=== PATIENT | male | born 1985 | race Caucasian/White ===

== ENCOUNTER 2023-12-19 16:46 | Emergency (ER) | payer MEDICARE, OTHER, SELFPAY ==
[2023-12-19 16:53] VITALS: BP 120/76
[2023-12-19 17:20] VITALS: BMI 21.8
--- NOTE | 2023-12-19 17:20 | ED.GENMED ---
History of Present Illness
General
Chief Complaint: Crisis Evaluation
Time Seen by Provider: 12/19/23 17:20
History of Present Illness
History of Present Illness:
TIME OF INITIAL ENCOUNTER: 5:30 PM
HPI: The patient was brought here by his mother due to overall concerns of his mental health. Earlier today he was in a [facility] mom was later brought to his mother. He has not been caring for himself. He has a history of schizophrenia and had
been at a place called [facility] ([place]). He states that he last used heroin 3 days ago and wants to go on methadone and want something for anxiety. Mom is hoping that he can go back to [place] as she felt that he improved while there. The patient
into consistently and shows positive to suicidal ideation questioning.
EXAM:
GENERAL: The patient has a bizarre affect wearing a bicycle helmet and sunglasses and mask
HEENT: Moist oral mucosa
CARDIOVASCULAR: No murmurs, normal heart rate, regular rhythm, No chest wall tenderness
PULMONARY: No respiratory distress, breath sounds are clear and equal
ABDOMEN: Soft with no peritoneal signs, no tenderness
NEUROLOGIC: Excellent strength all extremities, no coordination deficits
PSYCHIATRIC: Bizarre affect, limited insight and judgment
EXTREMITIES: Some mild edema noted to both hands with erythema but no tenderness
SKIN: No rash, no lesions
NUMBER AND COMPLEXITY OF PROBLEMS ADDRESSED AT THE ENCOUNTER
� Chronic conditions affecting care: Anxiety/depression, schizophrenia, history of substance abuse
� Acute Exacerbation and/or Progression of Chronic Illness: This is an acute problem
� Differential Diagnosis includes: Substance abuse, exacerbation of schizophrenia
AMOUNT AND/OR COMPLEXITY OF DATA TO BE REVIEWED AND ANALYZED
� I performed an independent evaluation of and my interpretation is:
EKG:
CT:
X-rays:
Laboratory Studies: UDS is positive for methadone only
Other:
� Review of other/old records: The patient was seen here as a crisis patient in December 2021
� Clinical information was obtained by an independent historian: I spoke to the mother at bedside
� Prescriptions/Medications Considered but not given:
� Further testing considered but not performed:
RISK OF COMPLICATIONS AND/OR MORBIDITY OR MORTALITY OF PATIENT MANAGEMENT
� Social determinants of health affecting care: Has been homeless and has been staying at shelters and also recently was kicked out of the facility due to substance use
� Discussion with other providers: I spoke to [facility] initially as there was some concern for SI and the patient has history of schizophrenia however [facility] recommended [facility] involvement. [facility] felt it would be too tough to
place this patient into rehab given his psychiatric history. I have asked [facility] to paint a telepsych consult at 7:50 PM.
� Escalation of care including admission/observation vs risk of discharge considered:
ANY OTHER UPDATES:
9:45 PM: I spoke to [facility] again. [facility] is telling me that there is a place in [place] that could take him his rehab. Currently, he does have a telepsych evaluation that is pending
Past History
Past History
ED Past Medical History: Asthma, Psychiatric (Anxiety, depression, suicide attempt (PTSD hallucinogenic perspective disorder)) and Other (irritable bowel syndrome, Polysubstance abuse)
ED Past Surgical History: Orthopedic
Patient has exhibited threatening behavior?: No
Social History
Tobacco: Former smoker
Alcohol: None
Drug: IVDA
Personal: Single
Living: alone
Employment: Not employed
Family History
Family History: Other (non-contributory) and Adopted
Phy Exam
Physical Exam
Physical Exam:
See HPI
Course
Orders/Labs/Results
Orders:
Orders
12/19/23 17:29
Crisis Consult Urgent
Reason for Consult: mental health eval
12/19/23 22:37
Urine Drug Abuse Screen Urgent
Date Specimen was Collected: 12/20/23
Time Specimen was Collected: 04:06
12/20/23 04:11
Fentanyl, Urine Urgent
Abnormal Lab Results
12/20/23
04:11
Urine Methadone Screen Positive H
(Negative)
Vital Signs
Initial and Last Documented VS:
Initial Vital Signs
Temp Pulse Resp BP Pulse Ox
98.5 F 87 16 120/76 98
12/19/23 16:53 12/19/23 16:53 12/19/23 16:53 12/19/23 16:53 12/19/23 16:53
Last Documented Vital Signs
Temp Pulse Resp BP Pulse Ox
98.1 F 81 18 126/73 100
12/19/23 21:00 12/20/23 04:35 12/20/23 04:35 12/20/23 04:35 12/20/23 04:35
*Critical Care Note
Total Time (30-74mins, 75-104mins- exclusive of procedures): Not Applicable
ED Attending Note
-
Portions of this chart may have been created with voice recognition software.� Occasional wrong word or��sound alike� substitutions may have occurred due to the inherent limitations of voice recognition software.
Discharge Plan
Departure
Patient Disposition: Psych Facility
Date of Disposition: 12/19/23
Time of Disposition: 20:47
Discharge Problem:
Active substance abuse
Prescriptions:
No Action
buprenorphine HCl [Subutex] 8 mg Tablet, Sublingual
8 mg SUBLINGUAL DAILY
Referrals:
UNKNOWN - PT NOT,INTERVIEWE [Family Provider] -
Interventions
Interventions:
*Risk Screen - Suicide Last Done: 12/19/23 16:53
*General Assessment Last Done: 12/19/23 17:20
*Neglect/Abuse Screening Last Done: 12/19/23 16:53
ED- Fall Risk Assessment Last Done: 12/19/23 17:20
*ED COVID-19 Vaccine History Last Done: 12/19/23 17:20
*Nursing Disposition Last Done: 12/20/23 09:10
ED-Psychological Assessment Last Done: 12/19/23 17:20
Discharge Date and Time
Discharge Date/Time: 12/20/23 09:09
Print Language: WALLISIAN
[2023-12-19 21:00] VITALS: BP 118/77
[2023-12-20 04:35] VITALS: BP 126/73
[2023-12-20 04:49] LABS: Amphetamines Negative (Negative); Barbiturates Negative (Negative); Benzodiazepines Negative (Negative); Buprenorphine Negative (Negative); Cocaine Negative (Negative); Marijuana Negative (Negative); Methadone Positive (Negative); Methamphetamines Negative (Negative); Opiates Negative (Negative); Phencyclidine Negative (Negative); Tricyclic Antidepressants Negative (Negative)
[2023-12-20 05:01] LABS: Fentanyl, Urine Negative (Negative)
== END 2023-12-20 09:09 ==
LOC: EMR 16:46
PROVIDERS: Emergency Medicine; EMERGENCY PHYSICIAN Emergency Medicine
DX: F19.10 Other psychoactive substance abuse, uncomplicated (principal); F11.20 Opioid dependence, uncomplicated; F25.0 Schizoaffective disorder, bipolar type; F43.12 Post-traumatic stress disorder, chronic; Z59.00 Homelessness unspecified; Z87.891 Personal history of nicotine dependence; J45.909 Unspecified asthma, uncomplicated
CPT/HCPCS: 99285; 80306; 80307

== ENCOUNTER 2024-02-06 13:13 | Emergency (ER) | payer OTHER, SELFPAY ==
[2024-02-06 13:17] VITALS: BP 130/84
--- NOTE | 2024-02-06 14:05 | ED.GENMED ---
History of Present Illness
General
Chief Complaint: Crisis Evaluation
Time Seen by Provider: 02/06/24 13:57
History of Present Illness
History of Present Illness:
Patient is a 38-year-old man with history of anxiety, depression, schizophrenia, PTSD not currently on any medications presenting to the emergency department for evaluation by crisis. Patient states that he was going to [place] when police stopped him
and brought him here for evaluation. He denies any SI or HI. He does states that he is very anxious. He does state that he is PTSD which is why he is anxious Per chart review patient has been seen here before. Occasionally he is here for acute
psychosis otherwise he is here for anxiety and will go to [place]. He denies any medical complaints at this time. He is interested in talking to somebody about his anxiety.
Past History
Past History
ED Past Medical History: Asthma, Psychiatric (Anxiety, depression, suicide attempt (PTSD hallucinogenic perspective disorder)) and Other (irritable bowel syndrome, Polysubstance abuse)
ED Past Surgical History: Orthopedic
Patient has exhibited threatening behavior?: No
Social History
Tobacco: Former smoker
Alcohol: None
Drug: IVDA
Personal: Single
Living: alone
Employment: Not employed
Family History
Family History: Other (non-contributory) and Adopted
Phy Exam
Physical Exam
Physical Exam:
GENERAL: in no acute distress
HEENT: normocephalic, extraocular movements intact, moist oral mucosa
NECK: normal inspection
RESPIRATORY: no respiratory distress, clear to auscultation bilaterally
CARDIOVASCULAR: regular rate and rhythm
ABDOMEN/: soft, non-distended, non-tender to palpation, no rebound or guarding
EXTREMITIES: non-tender, no edema/swelling
NEUROLOGIC: awake and alert, moves all extremities
Psych: Alert and oriented x 3, normal mood and affect, speech normal not pressured, coherent thought process, not tangential, not currently suicidal or homicidal, cooperative and communicating, no active auditory or visual hallucinations, good
insight and judgement
SKIN: warm
Course
Vital Signs
Initial and Last Documented VS:
Initial Vital Signs
Temp Pulse Resp BP Pulse Ox
98.1 F 71 16 130/84 99
02/06/24 13:17 02/06/24 13:17 02/06/24 13:17 02/06/24 13:17 02/06/24 13:17
Last Documented Vital Signs
Temp Pulse Resp BP Pulse Ox
98.1 F 71 16 130/84 99
02/06/24 13:17 02/06/24 13:17 02/06/24 13:17 02/06/24 13:17 02/06/24 13:17
MDM/Problems Addressed
Differential Diagnosis Includes:
Patient is a 38-year-old male with history of anxiety, schizophrenia, PTSD presenting to the emergency department requesting crisis evaluation for his anxiety. Vitals and exam are unremarkable. My evaluation patient denies any medical complaints.
He denies any SI or HI. He is voluntary requesting help to talk to somebody about his anxiety. He is interested on starting on medication or some treatment. Given that patient is not any harm to himself or others and does not meet any criteria
for involuntary placement I did discuss with crisis who are extremely familiar with him. Will discharge patient to [facility] for further evaluation.
*Critical Care Note
Total Time (30-74mins, 75-104mins- exclusive of procedures): Not Applicable
ED Attending Note
-
Portions of this chart may have been created with voice recognition software.� Occasional wrong word or��sound alike� substitutions may have occurred due to the inherent limitations of voice recognition software.
Discharge Plan
Departure
Patient Disposition: [facility]
Date of Disposition: 02/06/24
Time of Disposition: 14:04
Discharge Problem:
Anxious mood
Instructions: Anxiety, Adult (DC)
Prescriptions:
No Action
buprenorphine HCl [Subutex] 8 mg Tablet, Sublingual
8 mg SUBLINGUAL DAILY
Interventions
Interventions:
*Risk Screen - Suicide Last Done: 02/06/24 13:19
Discharge Date and Time
Print Language: TURKMEN
== END 2024-02-06 15:19 | disposition home or self-care (01) ==
LOC: EMR 13:13
PROVIDERS: EMERGENCY PHYSICIAN Student in an Organized Health Care Education/Training Program
DX: F41.9 Anxiety disorder, unspecified (principal); F20.9 Schizophrenia, unspecified; F43.10 Post-traumatic stress disorder, unspecified; F32.A Depression, unspecified; K58.9 Irritable bowel syndrome, unspecified; J45.909 Unspecified asthma, uncomplicated; F19.11 Other psychoactive substance abuse, in remission; Z91.51 Personal history of suicidal behavior; Z87.891 Personal history of nicotine dependence
CPT/HCPCS: 99282

== ENCOUNTER 2024-02-11 15:58 | Emergency (ER) | payer OTHER, SELFPAY ==
[2024-02-11 16:03] VITALS: BP 125/82
--- NOTE | 2024-02-11 17:23 | ED.GENMED ---
History of Present Illness
General
Chief Complaint: Crisis Evaluation
Source: patient
Exam Limitations: none
Time Seen by Provider: 02/11/24 17:06
Nursing documentation reviewed up to this point in time: agreed with
History of Present Illness
History of Present Illness:
The patient is a 38-year-old man who reportedly was found loitering near [place] and was brought in by police. Patient is a very guarded historian and is barely interactive with me. Patient reports he feels anxious but denies suicidal and homicidal
thoughts. Patient reports that he feels unsafe at home and wants to ' find a safe place to sleep'. Patient denies physical pain. He denies drug and alcohol use. Patient arrives with a hoodie, sunglasses and medical facial mask and will not take
anything off for my evaluation. Patient will not tell me what is going on in his life and will not explain why he does feel unsafe at home. He will not tell me where his family is or where he was living prior to today.
Past History
Past History
ED Past Medical History: Asthma, Psychiatric (Anxiety, depression, suicide attempt (PTSD hallucinogenic perspective disorder) schizophrenia) and Other (irritable bowel syndrome, Polysubstance abuse)
ED Past Surgical History: Orthopedic
Patient has exhibited threatening behavior?: No
Social History
Tobacco: Former smoker
Alcohol: None
Drug: IVDA
Personal: Single
Living: homeless
Employment: Not employed
Family History
Family History: Other (non-contributory) and Adopted
Review of Systems
Review of Systems
Allergies reviewed?: Yes
All Other Systems: Not applicable
Phy Exam
Physical Exam
Physical Exam:
Physical Exam
General: no apparent distress, malodorous. Hoodie up, sunglasses on, medical facial mask on. Very guarded
Neck: supple.
Heart: s1/s2 regular rate and rhythm, no murmur. equal radial pulses.
Lungs: no acute respiratory distress. clear bilaterally
Abdomen: Soft, nontender
Neuro: alert and oriented. no focal neurological deficits
Skin: no rash
Psychiatric: Barely interactive. Answers questions very slowly. At times does not answer questions
Extremities: no edema.
Course
Orders/Labs/Results
Orders:
Orders
02/11/24 17:22
Case Management Consult ONCE
Case Management Consult: Discharge Planning
Requested By:: PHYSICIAN
Comment: Pt homeless
02/11/24 17:24
Crisis Consult Urgent
Reason for Consult: anxious, homeless
02/11/24 17:26
02/11/24 17:26
Vital Signs
Initial and Last Documented VS:
Initial Vital Signs
Temp Pulse Resp BP Pulse Ox
98.2 F 80 16 125/82 98
02/11/24 16:03 02/11/24 16:03 02/11/24 16:03 02/11/24 16:03 02/11/24 16:03
Last Documented Vital Signs
Temp Pulse Resp BP Pulse Ox
98.2 F 90 17 112/73 97
02/11/24 16:03 02/12/24 00:54 02/12/24 06:00 02/12/24 00:54 02/12/24 00:54
MDM/Problems Addressed
Differential Diagnosis Includes:
Homelessness, PTSD, major depressive disorder
MDM/Problems Addressed:
Patient presents with what seems to be homelessness and complaints of anxiety
Chronic conditions affecting care: Psychiatric illness
Acute Exacerbation and/or Progression of Chronic Illness: Psychiatric illness
*Pulse Oximetry
Patient hypoxic: no
*Critical Care Note
Total Time (30-74mins, 75-104mins- exclusive of procedures): Not Applicable
Data Reviewed
Review of Other/Old Records Reveals: Progress Notes (Crisis note reviewed from 12/2023 which explained that patient has a history of polysubstance abuse and schizophrenia and has been brought in by his mother for him not caring for himself and
safety issues at home)
Update Note
Update Note:
5:55 PM patient adamantly refusing to get blood work and urine. Patient says that he understands that he likely cannot be placed in a psychiatric facility without giving blood and urine and he does not feel he needs psychiatric placement anyway.
Patient is agreeable to trying to get placed into a [facility].
ED Attending Note
-
Portions of this chart may have been created with voice recognition software.� Occasional wrong word or��sound alike� substitutions may have occurred due to the inherent limitations of voice recognition software.
Discharge Plan
Departure
Patient Disposition: Home (Routine Discharge)
Patient with high blood pressure during this ER visit?: No
Condition: Fair
Covid-19: Not Applicable
Discharge Problem:
Homelessness
Prescriptions:
No Action
buprenorphine HCl [Subutex] 8 mg Tablet, Sublingual
8 mg SUBLINGUAL DAILY
Referrals:
UNKNOWN - PT NOT,INTERVIEWE [Family Provider] -
Interventions
Interventions:
*Risk Screen - Suicide Last Done: 02/11/24 16:03
*General Assessment Last Done: 02/11/24 16:19
*Neglect/Abuse Screening Last Done: 02/11/24 16:19
ED- Fall Risk Assessment Last Done: 02/11/24 16:19
*ED COVID-19 Vaccine History Last Done: 02/11/24 16:19
*Nursing Disposition Last Done: 02/12/24 10:29
ED-Psychological Assessment Last Done: 02/11/24 16:22
Discharge Date and Time
Discharge Date/Time: 02/12/24 10:29
Print Language: POLISH
[2024-02-12 00:54] VITALS: BP 112/73
--- NOTE | 2024-02-12 10:07 | CM ---
ED CM consult for [facility] placement
Bedside meeting with pt along with crisis
Pt not forthcoming with background info
He declined crisis eval
Homeless resources provided along with [employer]
Calls to [facility] and [facility] hotline- all closed on weekend
Call with [facility]- beds available today, pt is not on do not serve list and passed preliminary background check
Pt in agreement with [facility]
Lyft arranged
Offered call to emergency contact/mother Sofia
Pt refused noting she is not his real mother
Discharge Disposition- [facility]
== END 2024-02-12 10:29 | disposition home or self-care (01) ==
LOC: EMR 15:58
PROVIDERS: EMERGENCY PHYSICIAN Emergency Medicine
DX: F41.9 Anxiety disorder, unspecified (principal); Z59.00 Homelessness unspecified; F32.A Depression, unspecified; F20.9 Schizophrenia, unspecified; F43.10 Post-traumatic stress disorder, unspecified; K58.9 Irritable bowel syndrome, unspecified; J45.909 Unspecified asthma, uncomplicated; F19.11 Other psychoactive substance abuse, in remission; Z91.51 Personal history of suicidal behavior; Z87.891 Personal history of nicotine dependence
CPT/HCPCS: 99282